=== PATIENT | female | born 1945 | race Caucasian/White ===

== ENCOUNTER → 2016-06-21 | Outpatient (CLI) | payer OTHER ==
[~2016-06-21] VITALS: Ht 157.5 cm; Wt 53.3 kg
[~2016-06-21] MED LIST: ADVIL200 M3 PO; APAP500 PO; ASPIR 8181 MG PO; ASPIRIN81 M2 PO; CALCIUM PO; CEFTIN 250 MG250 MG PO; LIPITOR80 MG PO; METOPROLOL SUCC25 M1 PO; NORVASC 5 MG TAB5 MG PO; TRAMADOL 50 MG50 MG PO; TRIAMTERENE/HCT1 CA1 PO; VOLTAREN 50MG T50 MG PO; VOLTAREN GEL 1100 G1 TOP; ZETIA10 MG PO
--- NOTE | ~2016-06-21 | HPC ---
[facility] [place] [address] PAIN MANAGEMENT CONSULTATION Name: SHEASHARON S Room #: REG [facility] Tracy#: [id number] Admission: 06/21/16 Attend Phys: Sathish Barros DO Discharge: Date of : 43 Report #: [id number] THIS REPORT FOR: //name// CC: Johanna Barros The patient is a 71-year-old female well known to the pain clinic, typically treated for lumbar radiculopathy secondary to spinal stenosis. She has done well with occasional epidural injections, last injection was back in January. Prior, she had had an injection in December and injections in June and July. Typically two injections have been afforded significant relief over a great deal of time. She notes that last injection afforded some 95% relief for 4 months pain. She is able to stand and walk with less pain. Now, the pain has gradually recurred without antecedent trauma and overuse. Pain is in the low back, right hip, leg with some weakness in the right side, rates the pain is 7 on a 0-10 visual analog scale. Physical exam shows 71-year-old female, BMI is 21.5 kilograms per meter squared. Vital signs are stable. Rises from chair using armrest, modestly antalgic gait favoring the right leg. Positive straight leg raise on the right. DIAGNOSTIC STUDIES: Moderately dated from 2011; however, it shows multilevel spondylosis, canal narrowed 9 mm at L4-L5, 7 mm at L5-S1. ASSESSMENT: Symptomatic lumbar radiculopathy secondary to spinal stenosis. RECOMMENDATION: Epidural injection under fluoroscopy today at L5-S1. Continue current range of motion activity. Follow up simply as needed. PROCEDURE: Lumbar epidural injection under fluoroscopy. PROCEDURE NOTE: After both written and informed consent to include risk of spinal cord damage, increased pain, weakness and dural puncture, the patient was taken to the fluoroscopy suite, placed in the prone position. After sterile prep and drape, a skin wheal with lidocaine was raised. A 22-gauge epidural Tuohy needle was inserted in the midline at L5-S1 with good loss to resistance. Negative aspiration for cerebrospinal fluid or blood was noted. Then 1 mL of Omnipaque under biplanar fluoroscopy showed good spread within the epidural space. This was followed with 80 mg of triamcinolone plus 1 mL of 1.5% preservative-free Xylocaine, 0.5 mL Xylocaine was then injected to flush the needle; it was removed. The patient was monitored for an appropriate period of time and discharged in good and stable condition. <ELECTRONICALLY SIGNED> By: Sathish Barros DO 06/25/16 0917 1710 [id number] Sathish Barros DO /nt
[2016-06-21 14:54] VITALS: BP 156/73
== END | disposition home or self-care (01) ==
LOC: PAIN 07:23
DX: M48.06 Spinal stenosis, lumbar region (principal)

== ENCOUNTER → 2016-12-21 | Outpatient (CLI) | payer OTHER ==
[~2016-12-21] VITALS: Ht 160 cm; Wt 51.3 kg
[~2016-12-21] MED LIST changes: +CRESTOR10 MG PO; +VITAMIN D3400 UNIT PO
[2016-12-21 14:22] VITALS: BP 121/83
== END | disposition home or self-care (01) ==
LOC: PAIN 06:58
DX: M48.06 Spinal stenosis, lumbar region (principal); M54.16 Radiculopathy, lumbar region; I25.10 Atherosclerotic heart disease of native coronary artery without angina pectoris; I73.89 Other specified peripheral vascular diseases; M81.0 Age-related osteoporosis without current pathological fracture; Z95.1 Presence of aortocoronary bypass graft; Z98.890 Other specified postprocedural states; Z88.8 Allergy status to other drugs, medicaments and biological substances; Z79.82 Long term (current) use of aspirin; Z79.899 Other long term (current) drug therapy

== ENCOUNTER → 2017-03-15 | Outpatient (CLI) | payer OTHER ==
[~2017-03-15] VITALS: Ht 160 cm; Wt 54.3 kg
--- NOTE | ~2017-03-15 | HPC ---
[facility] [place] [address] PAIN MANAGEMENT CONSULTATION Name: SHARON VALDIVIA Room #: REG [facility] Rosalio.#: [id number] Admission: 03/15/17 Attend Phys: Sathish Barors DO Discharge: Date of : 43 Report #: [id number] THIS REPORT FOR: //name// CC: Johanna Barros HISTORY OF PRESENT ILLNESS: The patient is a 72-year-old female typically treated for symptomatic lumbar radiculopathy, last seen in pain clinic on 12/21/2016. We did an epidural injection at that time with good incremental improvement of baseline pain, the patient notes 100% relief for 2-1/2 months. Pain is beginning to recur without antecedent trauma and overuse. Pain is in the low back, right hip and thigh and leg. Rates it a 5 on a VAS, exacerbated with sitting, standing and walking. PHYSICAL EXAMINATION: VITAL SIGNS: Shows a 72-year-old female, BMI is .2 kilograms per meter squared. Vital signs stable as noted in the EMR. MUSCULOSKELETAL: Rises from chair using armrest, moderately antalgic gait, positive straight leg raise on the right with slight decreased right hip flexion strength. The patient is planning on going to [place] to see her great granddaughter's baby shower. She is planning on doing some walking and we talked about riding the [employer]. She is a very active 72-year-old female. ASSESSMENT: Symptomatic lumbar radiculopathy secondary to spinal stenosis. RECOMMENDATIONS: 1. Epidural injection under fluoroscopy today at L3-L4. 2. Follow up simply as needed. I did take the liberty of renewing some tramadol 50 mg, dispensed 60 tablets, with 2 refills. PROCEDURE: Lumbar epidural injection under fluoroscopy. PROCEDURE NOTE: After both written and informed consent to include risk of spinal cord damage, increased pain, weakness and dural puncture, the patient was taken to the fluoroscopy suite, placed in the prone position. After sterile prep and drape, a skin wheal with lidocaine was raised. A 22-gauge epidural Tuohy needle was inserted in the midline at L3-L4 with good loss to resistance. Negative aspiration for cerebrospinal fluid or blood was noted. Then 1 mL of Omnipaque under biplanar fluoroscopy showed good spread within the epidural space. This was followed with 80 mg of triamcinolone plus 1 mL of 1.5% preservative-free Xylocaine, 0.5 mL Xylocaine was then injected to flush the [address] [address] PAIN MANAGEMENT CONSULTATION Name: SHARON VALDIVIA Room #: REG CL JazmineLarry#: [id number] Admission: 03/15/17 Attend Phys: Sathish Barros DO Discharge: Date of : 43 Report #: [id number] needle; it was removed. The patient was monitored for an appropriate period of time and discharged in good and stable condition. By: [id number] Sathish Barros DO /nt
[2017-03-15 14:58] VITALS: BP 136/60
== END | disposition home or self-care (01) ==
LOC: PAIN 07:37
DX: M54.16 Radiculopathy, lumbar region (principal); Z79.899 Other long term (current) drug therapy

== ENCOUNTER → 2017-06-17 | Outpatient (CLI) | payer OTHER ==
[~2017-06-17] VITALS: Ht 157.5 cm; Wt 54.9 kg
[~2017-06-17] MED LIST changes: +CALCIUM CARBO1250 MG PO; +CRESTOR40 MG PO; +VITAMIN D10000 UNIT PO
--- NOTE | ~2017-06-17 | HPC ---
[facility] [place] [address] [place] [address] PAIN MANAGEMENT CONSULTATION Name: SHARON VALDIVIA GARY Room #: REG AGUILA Molina#: [id number] Admission: 06/17/17 Attend Phys: Sathish Barros DO Discharge: Date of : 43 Report #: [id number] THIS REPORT FOR: //name// CC: Johanna Barros HISTORY OF PRESENT ILLNESS: The patient is a 72-year-old female typically treated for symptomatic lumbar radiculopathy. He does well with occasional epidural injections, last injection was on 03/15/2017 at L3-L4. The patient notes she had significant relief, near 100% for 2 months, pain has gradually begun to recur. She rates the pain currently at 7 on a VAS, pain is exacerbated at low back, right hip and leg; exacerbated with sitting, standing and walking. Prior the patient had had injections in June, December and the aforementioned 03/15/2017 injection in 2016. She had prior had 4 injections in 2015, one in 2014 and two in 2013. He returns to pain clinic noting pain has recurred, it is in the low back, right buttock, and legs. The patient does have osteoporosis, she is being treated with calcium, vitamin D and Reclast. We talked at length about concern for steroids promoting osteoporosis. The patient notes that with the significant improvement of function following epidural injections, which we have used with great discretion, her quality of life has significantly improved in her functional status has significantly improved. PHYSICAL EXAMINATION: Today shows a 72-year-old female, BMI is 22.1 kilograms per meter squared. Vital signs stable as noted in the EMR. Rises chair using armrest, modestly antalgic gait, slight decreased right hip flexion strength, lower extremity extension strength. Modestly positive straight leg raise on the right, classic neurogenic symptoms. ASSESSMENT: Symptomatic lumbar radiculopathy by clinical exam and history. RECOMMENDATIONS: Repeat epidural injection under fluoroscopy today. Follow up as needed. The patient is planning to travel to [place] to visit with her grandchildren. We will see her simply as needed. PROCEDURE: Lumbar epidural injection under fluoroscopy. PROCEDURE NOTE: After both written and informed consent to include risk of spinal cord damage, increased pain, weakness and dural puncture, the patient was taken to the fluoroscopy suite, placed in the prone position. After sterile prep and drape, a skin wheal with lidocaine was raised. A 22-gauge epidural [address] [address] PAIN MANAGEMENT CONSULTATION Name: SHARON VALDIVIA Room #: REG CL Tracy#: [id number] Admission: 06/17/17 Attend Phys: Sathish Barros DO Discharge: Date of : 43 Report #: [id number] Tuohy needle was inserted in the midline at L3-L4 with good loss to resistance. Negative aspiration for cerebrospinal fluid or blood was noted. Then 1 mL of Omnipaque under biplanar fluoroscopy showed good spread within the epidural space. This was followed with 80 mg of triamcinolone plus 1 mL of 1.5% preservative-free Xylocaine, 0.5 mL Xylocaine was then injected to flush the needle; it was removed. The patient was monitored for an appropriate period of time and discharged in good and stable condition. <ELECTRONICALLY SIGNED> By: Sathish Barros DO 06/19/17 0721 [id number] [id number] Sathish Barros DO /nt
[2017-06-17 12:34] VITALS: BP 124/59
== END | disposition home or self-care (01) ==
LOC: PAIN 06:54
DX: M54.16 Radiculopathy, lumbar region (principal); G89.29 Other chronic pain; Z98.890 Other specified postprocedural states; Z88.8 Allergy status to other drugs, medicaments and biological substances; Z79.82 Long term (current) use of aspirin; Z79.899 Other long term (current) drug therapy

== ENCOUNTER → 2017-09-23 | Outpatient (CLI) | payer OTHER ==
[~2017-09-23] VITALS: Ht 157.5 cm; Wt 54.6 kg
--- NOTE | ~2017-09-23 | HPC ---
[facility] [place] [address] [address] PAIN MANAGEMENT CONSULTATION Name: SHARON VALDIVIA Room #: REG [facility] Rosalio.#: [id number] Admission: 09/23/17 Attend Phys: Sathish Barros DO Discharge: Date of : 43 Report #: [id number] THIS REPORT FOR: //name// CC: Johanna Barros DATE OF SERVICE: 09/23/2017 The patient is a 72-year-old female, prior seen in the pain clinic on 06/17/2017. We did an epidural injection at that time with excellent improvement of baseline pain. In fact, the patient had nearly 100% relief for 2-3 months, pain gradually began to recur. She was able to walk in [place] with visiting family. Notes, her return pain score is a 7 on a VAS. PHYSICAL EXAMINATION: GENERAL: Shows a pleasant 72-year-old female, BMI is 22 kilograms per meter squared. VITAL SIGNS: Blood pressure 165/71, pulse 72, respirations 14. Her subjective pain score is a 7 on a VAS. She fell over a dog a couple days ago, but generally her gait is steady. She has no ataxia. Medication list was reconciled. She rises from chair using armrest, modestly antalgic gait, diffuse tenderness across the low back, positive straight leg raise on right side. Right hip flexion strength is modestly diminished, greater than left. ASSESSMENT: Symptomatic lumbar radiculopathy secondary to spinal stenosis with excellent relief following prior epidural injections for several months. RECOMMENDATION: Repeat epidural injection under fluoroscopy today. Follow up simply as needed. PROCEDURE: Midline epidural injection under fluoroscopy. PROCEDURE NOTE: After both written and informed consent to include risk of spinal cord damage, increased pain, weakness and dural puncture, the patient was taken to the fluoroscopy suite, placed in the prone position. After sterile prep and drape, a skin wheal with lidocaine was raised. A 22-gauge epidural Tuohy needle was inserted in the midline at L3-L4 with good loss to resistance. Negative aspiration for cerebrospinal fluid or blood was noted. Then 1 mL of Omnipaque under biplanar fluoroscopy showed good spread within the epidural space. This was followed with 80 mg of triamcinolone plus 1 mL of 1.5% preservative-free Xylocaine, 0.5 mL Xylocaine was then injected to flush the [address] [address] PAIN MANAGEMENT CONSULTATION Name: SHARON VALDIVIA Room #: REG CLKayla Molina#: [id number] Admission: 09/23/17 Attend Phys: Sathish Barros DO Discharge: Date of : 43 Report #: [id number] needle; it was removed. The patient was monitored for an appropriate period of time and discharged in good and stable condition. <ELECTRONICALLY SIGNED> By: Sathish Barros DO 09/25/17 0819 1643 1936 Sathish Barros DO /sonia
[2017-09-23 12:44] VITALS: BP 165/71
== END | disposition home or self-care (01) ==
LOC: PAIN 07:05
DX: M54.16 Radiculopathy, lumbar region (principal); M48.061 Spinal stenosis, lumbar region without neurogenic claudication

== ENCOUNTER → 2018-01-10 | Outpatient (CLI) | payer OTHER ==
[~2018-01-10] VITALS: Ht 157.5 cm; Wt 55.8 kg
--- NOTE | ~2018-01-10 | HPC ---
[facility] [place] [address] PAIN MANAGEMENT CONSULTATION Name: SHARON VALDIVIA Room #: REG AGUILA Molina#: [id number] Admission: 01/10/18 Attend Phys: Richard Gibbs MD Discharge: Date of : 43 Report #: [id number] THIS REPORT FOR: //name// CC: Johanna Espino DATE OF SERVICE: 01/10/2018 CHIEF COMPLAINT: Back pain. HISTORY OF PRESENT ILLNESS: The patient is a 72-year-old female who has been followed in the Pain Clinic for some time by Dr. Sathish Barros. This is my first visit with the patient. She has a history of lumbar radicular pain. She has undergone epidural steroid injections in the past and gleans about 100% relief for 2-3 months, then her pain usually recurs. She notes that her pain is 5 today. She is experiencing pain that radiates down into right buttocks area in the L5 distribution. She describes it as worse when she is sitting, standing, walking, lifting, and bending. She feels that her medications are somewhat helpful. She has undergone epidural steroid injections and gleaned benefits from these. She has returned today with the hopes of undergoing an epidural steroid injection to help quell her pain and discomfort. She has had no complications from the procedures in the past. ALLERGIES: MORPHINE, GLUTEN. MEDICATIONS: Ultram 50 mg q. 4 hours p.r.n., Voltaren gel 1% topical 4 times daily to the right knee, calcium carbonate 1250 mg, Crestor 40 mg, vitamin D3 10,000 units, aspirin 81 mg, hydrochlorothiazide/triamterene 37.5/25, metoprolol XL 25 mg. PAST MEDICAL HISTORY: Coronary artery bypass in 1999, heart stent placement in 2001, carotid left and right in 2002. PAST SURGICAL HISTORY: Hysterectomy in 1984, carotid right side in 2002, carotid left side in 2002, coronary artery bypass graft 1999, heart stents placement in 2001. SOCIAL HISTORY: She is retired. REVIEW OF SYSTEMS: Fatigue, weakness, wears glasses, numbness and tingling sensation. LABORATORY AND DIAGNOSTIC DATA: MRI of the lumbar spine without contrast dated 11/25/2016. 1. L3-L4: Circumferential disk bulge. No significant spinal canal narrowing. [address] [address] PAIN MANAGEMENT CONSULTATION Name: SHEASHARON GARY Room #: REG AGUILA Molina#: [id number] Admission: 01/10/18 Attend Phys: Richard Gibbs MD Discharge: Date of : 43 Report #: [id number] Mild bilateral spinal canal narrowing. Mild facet arthropathy. 2. L4-L5: Circumferential disk bulge. Ligamentum flavum thickening. Moderate spinal canal narrowing. Mild bilateral neural foraminal narrowing. Moderate facet arthropathy. Bilateral facet fluid. Small synovial cyst extending posterior to the left side articulating facet. 3. L5-S1: Circumferential bulging disks, asymmetric to the left. Annular fissure. Mild spinal canal narrowing including the left lateral recess. Moderate left and mild right neural foraminal narrowing. Moderate facet arthropathy. Lumbar spondylosis. Moderate spinal canal narrowing at L4-L5. PAIN CLINIC ASSESSMENT: 1. Some osteoarthritic changes in the lumbar spine. 2. The patient is not being treated for rheumatoid arthritis. 3. Height 5 feet 2 inches, weight 123 pounds, BMI 22.5. 4. Vital signs: Blood pressure 143/49, pulse 58, respiratory rate 14, room air saturation is 95%. 5. Pain intensity: 5/10. 6. Fall risk: The patient has not fallen in the last 3 months. 7. Blood thinner: The patient is not on a blood thinning medication. 8. History of hypertension: The patient is being treated for hypertension. 9. Opioid therapy greater than 6 weeks: The patient is not on opioid therapy. 10. Risk assessment tool: Low at 0/3-4 use of opioid. 11. Functional assessment tool. 12. Recreational drug use: The patient denies use of recreational drugs. 13. Tobacco: The patient has never smoked tobacco. 14. Alcohol: The patient denies use of alcoholic beverages PHYSICAL EXAMINATION: HEENT: Normocephalic, atraumatic. Extraocular eye muscles intact. Sclerae nonicteric. Mucous membranes are moist. NECK: Without JVD or adenopathy. HEART: Regular rate. LUNGS: Clear to auscultation without rhonchi or rales. MUSCULOSKELETAL: The patient is without significant scoliosis, kyphosis or lordosis. The patient has pain and discomfort in the lower portion of her back with pain that is radiating down into the low back, right hip, right buttocks area. She is complaining about pain at this juncture, which has improved with epidural steroid injections in the past. They were up in the area of the L3-L4 areas. IMPRESSION: 1. Lumbar radiculopathy in the L5-S1 area involving the right hip area and right buttocks with radiation down into the leg. 2. Coronary artery bypass in 1999. 3. Heart stent placement in 2001. 4. Carotid left and right in [address] [address] PAIN MANAGEMENT CONSULTATION Name: SHARON VALDIVIA Room #: REG [facility]#: [id number] Admission: 01/10/18 Attend Phys: Richard Gibbs MD Discharge: Date of : 43 Report #: [id number] RECOMMENDATIONS: We discussed treatment options with the patient. Risks and benefits of an epidural steroid injection were again reviewed. Possible complications of the procedure were discussed. They include but are not limited to infection, increased muscle soreness, headache, bleeding, worsening of pain, no improvement in pain, paresis. The patient elects to proceed. PROCEDURE NOTE: The patient was then taken to the Pain Clinic. She was assisted in getting on the examination table. Her back was sterilely prepped with Betadine solution. A pillow had been placed under her abdomen to bolster and improve positioning. Fluoroscopy using the anterior, posterior as well as lateral approach were instituted. A right paramedian approach was elected. 0.25% bupivacaine was infiltrated. A 17-gauge Tuohy with loss of resistance technique was used to gain access to the epidural space. There was no CSF, heme or paresthesia. Total of 80 mg Depo-Medrol, 40 mg triamcinolone, and 2 mL of 0.25% bupivacaine was injected. The patient's pain decreased from 5 to 0 at the time of discharge. Total of 6 seconds fluoroscopy time was used. The patient will follow up in the future as needed. We would like to thank you for letting us participate in her care. We hope she continues to improve. By: [id number] Richard Gibbs MD /sonia
[2018-01-10 12:57] VITALS: BP 143/49
== END | disposition home or self-care (01) ==
LOC: PAIN 07:05
DX: M54.16 Radiculopathy, lumbar region (principal); I10 Essential (primary) hypertension; I25.10 Atherosclerotic heart disease of native coronary artery without angina pectoris; Z95.1 Presence of aortocoronary bypass graft; Z95.5 Presence of coronary angioplasty implant and graft; Z90.710 Acquired absence of both cervix and uterus; Z79.01 Long term (current) use of anticoagulants; Z98.890 Other specified postprocedural states; Z88.8 Allergy status to other drugs, medicaments and biological substances; Z79.82 Long term (current) use of aspirin; Z79.899 Other long term (current) drug therapy; G89.29 Other chronic pain

== ENCOUNTER → 2018-04-25 | Outpatient (CLI) | payer OTHER ==
[~2018-04-25] VITALS: Ht 157.5 cm; Wt 55.0 kg
[2018-04-25 13:10] VITALS: BP 156/68
== END | disposition home or self-care (01) ==
LOC: PAIN 07:27
DX: M54.16 Radiculopathy, lumbar region (principal); Z79.899 Other long term (current) drug therapy; Z79.82 Long term (current) use of aspirin; Z88.6 Allergy status to analgesic agent; Z88.8 Allergy status to other drugs, medicaments and biological substances

== ENCOUNTER → 2018-07-25 | Outpatient (CLI) | payer OTHER ==
[~2018-07-25] VITALS: Ht 160 cm; Wt 55.0 kg
--- NOTE | ~2018-07-25 | HPC ---
[facility] [place] [address] PAIN MANAGEMENT CONSULTATION Name: SHARON VALDIVIA Room #: REG AGUILA Santamaria.#: [id number] Admission: 07/25/18 Attend Phys: Richard Gibbs MD Discharge: Date of : 43 Report #: [id number] THIS REPORT FOR: //name// CC: Johanna Gibbs DATE OF SERVICE: 07/25/2018 FOLLOWUP HISTORY: This might be my last injection. I am going to move to [place] and vacation in the summertime in [place] with my other son. HISTORY: The patient is a 73-year-old female who has been seen in the pain clinic because of lumbar radiculopathy. She has undergone epidural steroid injections. She states that she has gleaned considerable benefit from these. She has pain, which is radiating down into her right leg. She is anticipating moving to [place] in the near future. She would like to proceed with another epidural steroid injection to help calm down her pain and discomfort which she has been experiencing, which radiates down into her right leg. She rates the pain today as a 5/10. It is snowing 2-4 inches today. The weather is cold. ALLERGIES: MORPHINE, GLUTEN. CURRENT MEDICATIONS: Ultram 50 mg q.4 hours, Voltaren gel topical 1% 4 times daily to the right knee. Calcium carbonate 1250 mg, Crestor 40 mg, vitamin D3 10,000 units, aspirin 81 mg, hydrochlorothiazide/triamterene 37.5/25, metoprolol XL 25 mg. PAIN CLINIC ASSESSMENT/PQRS: 1. The patient has a history of osteoarthritis. She has been experiencing pain and discomfort in the lumbar spine. Has pain which is radiating down into her right leg. The patient is not being treated for rheumatoid arthritis. 2. Height 5 feet 2 inches, weight 121 pounds, BMI is 21.5. 3. Vital signs: Blood pressure 151/53, pulse 76, respiratory rate 18, room air saturation 91%. 4. Pain intensity 10. 5. Fall risk. The patient has not fallen in the last 3 months. 6. Blood thinner. The patient is not on a blood thinning medication. 7. Hypertension. The patient is being treated for hypertension. 8. Opioid greater than 6 weeks. The patient is not on any opioid medication on a long-term basis. 9. Risk assessment tool is low for opioid 0/3. 10. Functional assessment tool. 11. Recreational drug use. The patient denies use of recreational drugs. 12. Tobacco: The patient has never smoked. 13. Alcohol: The [place] [address] PAIN MANAGEMENT CONSULTATION Name: SHEASHARON SUE Room #: REG CLKayla Molina#: [id number] Admission: 07/25/18 Attend Phys: Richard Gibbs MD Discharge: Date of : 43 Report #: [id number] PHYSICAL EXAMINATION: GENERAL: The patient is a well-developed, well-nourished, very pleasant white female. Appears her stated age. She is alert and oriented x 3. Her affect is appropriate. Speech is fluent. HEENT: Normocephalic, atraumatic. Extraocular eye muscles are intact. Sclerae nonicteric. Mucous membranes moist. NECK: Without adenopathy or JVD. HEART: Regular rate. S1, S2. LUNGS: Clear to auscultation without rhonchi or rales. MUSCULOSKELETAL: Without significant scoliosis, kyphosis or lordosis. The patient has pain and discomfort that is radiating down into the lower portion of her back in the L4-L5 dermatomal distribution. IMPRESSION: 1. Lumbar radiculopathy, which has improved in the past with epidural steroid injections today in the L4-L5 dermatomal distribution. 2. Coronary artery disease, status post coronary artery bypass graft in 1999. 3. Heart stent placement in 2001. 4. Carotid left and right 2002. RECOMMENDATIONS: We discussed treatment options with the patient. Risks and benefits of an epidural steroid injection were again reviewed. They include but are not limited to infection, worsening of pain, no improvement in pain, nerve damage, paralysis and the patient elects to proceed. PROCEDURE NOTE: The patient was taken to the procedure area. She was assisted in getting on the examination table. Fluoroscopy using anterior, posterior as well as lateral viewing were implemented. Her back was sterilely prepped at the L4-L5 interspace. This area had been cleaned with Betadine solution. A 25-gauge needle was then advanced into the L4-L5 area to numb it. A 17-gauge Tuohy with loss of resistance technique was used to gain access to the epidural space. There was no CSF, heme or paresthesia. Total of 80 mg Depo-Medrol, 40 mg triamcinolone and 2 mL of 0.25% bupivacaine was injected. Total of 12 seconds fluoroscopy time was used. The patient remained in the pain clinic for an appropriate amount of time. She will follow up in the future as needed. We would like to thank you for letting us participate in her care. We hope she continues to improve. By: [id number] Richard Gibbs MD /nt
[2018-07-25 10:27] VITALS: BP 151/53
--- NOTE | 2018-07-25 10:32 | NUR ---
Pain Clinic Assessment: 1. History of Osteoarthritis: NO History of Rheumatoid Arthritis: NO 2. Height: 5 ft. 3 in. 160.0 cm. Weight: 121.3 lb. oz. 55.021 kg. Patient's BMI: 21.5 3. Vital Signs: BP: 151/53 Pulse: 78 Resp: 18 Temp: 02 Sat: 91 ECG Mon: 4. Pain Intensity: 5 5. Fall Risk: Dizziness: N Needs help standing or walking: N Fallen in the last 3 months: N Fall risk comments: 6. Patient on Blood Thinner: None 7. History of Hypertension: Y 8. Opioid Therapy greater than 6 weeks: N Opiate Contract Signed: 9. Risk Assessment Tool Provided: LOW RISK 0/3 10. Functional Assessment Tool: 11. Recreational Drug Use: Never Drug Type: Tobacco Use: Never Smoker Tobacco Type: Amount or Packs/day: How Many Years: Alcohol Use: No Frequency: Quant:
== END | disposition home or self-care (01) ==
LOC: PAIN 10:11
DX: M54.16 Radiculopathy, lumbar region (principal); M19.90 Unspecified osteoarthritis, unspecified site; I25.10 Atherosclerotic heart disease of native coronary artery without angina pectoris; I10 Essential (primary) hypertension; Z95.5 Presence of coronary angioplasty implant and graft; Z88.8 Allergy status to other drugs, medicaments and biological substances; Z79.899 Other long term (current) drug therapy

== ENCOUNTER → 2019-02-20 | Outpatient (CLI) | payer OTHER ==
[~2019-02-20] VITALS: Ht 160 cm; Wt 52.2 kg
[~2019-02-20] MED LIST changes: +ALENDRONATE SOD70 MG PO
[2019-02-20 08:11] VITALS: BP 139/73
--- NOTE | 2019-02-20 08:22 | NUR ---
Pain Clinic Assessment: 1. History of Osteoarthritis: Left Lower Extremity Left Upper Extremity Right Lower Extremity Right Upper Extremity History of Rheumatoid Arthritis: NO 2. Height: 5 ft. 3 in. 160.0 cm. Weight: 115.0 lb. oz. 52.164 kg. Patient's BMI: 20.4 3. Vital Signs: BP: 139/73 Pulse: 67 Resp: 16 Temp: 02 Sat: 100 ECG Mon: 4. Pain Intensity: 5 5. Fall Risk: Dizziness: N Needs help standing or walking: N Fallen in the last 3 months: N Fall risk comments: 6. Patient on Blood Thinner: None 7. History of Hypertension: Y 8. Opioid Therapy greater than 6 weeks: N Opiate Contract Signed: 9. Risk Assessment Tool Provided: LOW RISK 0 10. Functional Assessment Tool: /70 11. Recreational Drug Use: Never Drug Type: Tobacco Use: Never Smoker Tobacco Type: Amount or Packs/day: How Many Years: Alcohol Use: No Frequency: Quant:
--- NOTE | 2019-03-02 08:54 | HPC ---
[facility] [place] [address] PAIN MANAGEMENT CONSULTATION Name: SHARON VALDIVIA Room #: REG LINOKayla Molina#: [id number] Admission: 02/20/19 ������������������ Attend Phys: Richard Gibbs MD Discharge: ������������������ Date of : 41 Report #: [id number] THIS REPORT FOR: //name// CC: Johanna Colón DATE OF SERVICE: 02/20/2019 CHIEF COMPLAINT: 'We are going to go on vacation and I would like to get another injection to help with my back pain." HISTORY: The patient is a very pleasant 74-year-old female, who has been seen in the Pain Clinic because of a history of lumbar radiculopathy. She has undergone epidural steroid injections in the past. These have been beneficial and decreased her pain and discomfort. She is considering going on vacation at this point and would like to undergo another epidural injection. She rates her pain as a 5/10. She is experiencing some pain and discomfort, which she is experiencing in her lower back and buttocks bilaterally. Also, she has some discomfort in the right leg. Notes some discomfort in the right hip. Sitting, walking and lifting can be problematic. Pain improves after the injection as well as with medications. She does use Tylenol Arthritis to help calm down the pain. She has had no complications in the past and elects to proceed. ALLERGIES: MORPHINE, GLUTEN. CURRENT MEDICATIONS: Ultram 50 mg q. 4 hours p.r.n., Voltaren gel topical 1% 4 times daily to the right knee, calcium carbonate 1250 mg, Crestor 40 mg, vitamin D3 3000 units, aspirin 81 mg, hydrochlorothiazide/triamterene 37.5/25, metoprolol XL 25 mg. PAIN CLINIC ASSESSMENT AND PQRS: 1. The patient has a history of lower and upper extremity osteoarthritis as well as some right upper and lower extremity osteoarthritic changes. The patient is not being treated for rheumatoid arthritis. 2. Height 5 feet 3 inches, weight 115 pounds, BMI is 20. 3. Vital signs: Blood pressure 139/73, pulse 67, respiratory rate 16, room air saturation 100%. 4. Pain intensity: 5/10. 5. Fall history: The patient has not fallen in the last 3 months. 6. Blood thinner: The patient is not on a blood thinning medication. 7. Hypertension: The patient is being treated for hypertension. 8. Opioids greater than 6 weeks: The patient receives medication from one [facility] from [facility] Clinic. 9. Risk assessment tool: Low for opioid use. 10. [place] [address] PAIN MANAGEMENT CONSULTATION Name: SHEASHARONADOLFO VEGA Room #: REG AGUILA Molina#: [id number] Admission: 02/20/19 ������������������ Attend Phys: Richard Gibbs MD Discharge: ������������������ Date of : 41 Report #: [id number] 11. Recreational drug use: The patient denies. 12. Tobacco: The patient has never smoked. 13. Alcohol. The patient denies frequent use of alcoholic beverages. PHYSICAL EXAMINATION: GENERAL: The patient is a well-developed, well-nourished, white female. Appears her stated age. She is alert and oriented x 3. Her affect is appropriate. Speech is fluent. HEENT: Normocephalic, atraumatic. Extraocular eye muscles intact. Sclerae nonicteric. Mucous membranes are moist. NECK: Without adenopathy or JVD. HEART: Regular rate. S1 and S2. LUNGS: Clear to auscultation without rhonchi or rales. MUSCULOSKELETAL: Without significant scoliosis, kyphosis or lordosis. The patient has pain and discomfort in the lower portion of her back with pain radiating down to the lower portion of her legs in the L4-L5 dermatomal distribution. IMPRESSION: 1. Lumbar radiculopathy, which is improved in the past with epidural steroid injections. 2. Coronary artery disease, status post coronary artery bypass graft in 1999. 3. Heart stent placement in 2001. 4. Carotid, left and right in 2002. RECOMMENDATIONS: We discussed treatment options with the patient. Risks and benefits of an epidural steroid injection were again discussed. Possible complications of the procedure, which could include but are not limited to infection, worsening of pain, no improvement in pain were explained and the patient elects to proceed. PROCEDURE NOTE: The patient was taken to the procedure area. She was then assisted in getting on the examination table. Her back was sterilely prepped with betadine solution. A pillow was placed under the abdomen to bolster and improve positioning. A 25-gauge needle using a midline approach was undertaken to anesthetize this area. A 17-gauge Tuohy with loss of resistance technique was used to gain access to the epidural space. There was no CSF, heme or paresthesia. A total of 80 mg Depo-Medrol, 40 mg triamcinolone, and 2 mL of 0.25% bupivacaine was injected at the L5-S1 area. The patient tolerated the procedure well. There were no complications. She remained in the Pain Clinic for an appropriate amount of time. She will follow up in the future as needed. [address] [address] PAIN MANAGEMENT CONSULTATION Name: SHARON VALDIVIA Room #: REG [facility].#: [id number] Admission: 02/20/19 ������������������ Attend Phys: Richard Gibbs MD Discharge: ������������������ Date of : 41 Report #: [id number] We would like to thank you for letting us participate in her care. We hope she continues to improve. ��������������������������������������������� <ELECTRONICALLY SIGNED> ���������������������������������������� By: Richard Gibbs MD ��������������������������������������������� 03/02/19 0854 [id number] Richard Gibbs MD /nt
== END | disposition home or self-care (01) ==
LOC: PAIN 06:43
DX: M54.16 Radiculopathy, lumbar region (principal); G89.29 Other chronic pain; I10 Essential (primary) hypertension; I25.10 Atherosclerotic heart disease of native coronary artery without angina pectoris; Z88.8 Allergy status to other drugs, medicaments and biological substances; Z79.899 Other long term (current) drug therapy; Z98.890 Other specified postprocedural states; Z79.82 Long term (current) use of aspirin

== ENCOUNTER → 2019-05-22 | Outpatient (CLI) | payer OTHER ==
[~2019-05-22] VITALS: Ht 160 cm; Wt 53.6 kg
[~2019-05-22] MED LIST changes: +BENICAR20 MG PO
[2019-05-22 09:50] VITALS: BP 126/57
--- NOTE | 2019-05-22 10:12 | NUR ---
Pain Clinic Assessment: 1. History of Osteoarthritis: RIGHT HIP SPINE RIGHT KNEE History of Rheumatoid Arthritis: NO 2. Height: 5 ft. 3 in. 160.0 cm. Weight: 118.2 lb. oz. 53.615 kg. Patient's BMI: 20.9 3. Vital Signs: BP: 126/57 Pulse: 60 Resp: 14 Temp: 02 Sat: 100 ECG Mon: 4. Pain Intensity: 4-5 5. Fall Risk: Dizziness: Y Needs help standing or walking: N Fallen in the last 3 months: N Fall risk comments: 6. Patient on Blood Thinner: None 7. History of Hypertension: Y 8. Opioid Therapy greater than 6 weeks: N Opiate Contract Signed: 9. Risk Assessment Tool Provided: LOW RISK 0 10. Functional Assessment Tool: 11. Recreational Drug Use: Never Drug Type: Tobacco Use: Never Smoker Tobacco Type: Amount or Packs/day: How Many Years: Alcohol Use: No Frequency: Quant:
== END | disposition home or self-care (01) ==
LOC: PAIN 07:31
DX: M54.16 Radiculopathy, lumbar region (principal); Z88.8 Allergy status to other drugs, medicaments and biological substances; Z79.82 Long term (current) use of aspirin; Z79.899 Other long term (current) drug therapy

== ENCOUNTER → 2019-08-19 | Outpatient (CLI) | payer OTHER ==
[~2019-08-19] VITALS: Ht 160 cm; Wt 53.3 kg
[2019-08-19 09:33] VITALS: BP 129/84
--- NOTE | 2019-08-19 09:47 | NUR ---
Pain Clinic Assessment: 1. History of Osteoarthritis: RIGHT HIP SPINE RIGHT KNEE History of Rheumatoid Arthritis: NO 2. Height: 5 ft. 3 in. 160.0 cm. Weight: 117.6 lb. oz. 53.343 kg. Patient's BMI: 20.8 3. Vital Signs: BP: 129/84 Pulse: 66 Resp: 14 Temp: 02 Sat: 96 ECG Mon: 4. Pain Intensity: 4-GETS WORSE BY AFTERNOON 5. Fall Risk: Dizziness: N Needs help standing or walking: N Fallen in the last 3 months: Y Fall risk comments: 6. Patient on Blood Thinner: None 7. History of Hypertension: Y 8. Opioid Therapy greater than 6 weeks: N Opiate Contract Signed: 9. Risk Assessment Tool Provided: LOW RISK 0 10. Functional Assessment Tool: 11. Recreational Drug Use: Never Drug Type: Tobacco Use: Never Smoker Tobacco Type: Amount or Packs/day: How Many Years: Alcohol Use: No Frequency: Quant:
--- NOTE | 2019-08-25 10:01 | HPC ---
[facility] [place] [address] PAIN MANAGEMENT CONSULTATION Name: SHARON VALDIVIA Room #: REG AGUILA Tracy#: [id number] Admission: 08/19/19 Attend Phys: Richard Gibbs MD Discharge: Date of : 41 Report #: [id number] THIS REPORT FOR: cc: Johanna Feng Kathleen M. DO Brown, N. Wayne MD ~ CC: Johanna Gibbs DATE OF SERVICE: 08/19/2019 CHIEF COMPLAINT: The patient has pain and discomfort in the lower portion of her back. It is radiating down into her legs. HISTORY: The patient is a 74-year-old female who has been followed in the pain clinic. As you may recall, she suffers from lumbar radiculopathy. She has undergone epidural steroid injections. She has noticed benefits from this. She travels. Since she has returned home she has noted some increased pain and discomfort that is radiating down into her legs. Right leg is most problematic. She does recount having a dog jumped up on her about Jax time. She did fall. For the last 6 weeks, she has noted that her pain has continued to be more problematic. She has difficulty relaxing. She rates her pain as a 4 in the morning and can rise to a level of 5 by afternoon. She would like to proceed with another epidural steroid injection, which has been beneficial in the past. She is anticipating going to [place] to be with family members. ALLERGIES: MORPHINE AND GLUE. CURRENT MEDICATIONS: Ultram 50 mg q. 4 hours p.r.n., Voltaren gel topical 1% 4 times daily, calcium carbonate 1250 mg, Crestor 40 mg, vitamin D3 1000 units, aspirin 81 mg, hydrochlorothiazide, triamterene 37.5/25, and metoprolol XL 25 mg. PAIN CLINIC ASSESSMENT AND PQRS: 1. The patient has history of pain and discomfort in the lower extremities. She has osteoarthritic changes in her right hip, spine and in the right knee. She is not being treated for rheumatoid arthritis. 2. Height 5 feet 3 inches, weight 117 pounds, BMI is 20.8. 3. Vital signs: Blood pressure 129/84, pulse 66, respiratory rate 14, room air saturation 96%. 4. Pain intensity 4/5. 5. Fall history: The patient did fall in 05/2019 after a dog jumped upon her. She does note some increased pain in her right leg. 6. Blood thinner. The patient is not on a blood thinning medication. 7. Hypertension. The patient is being treated for hypertension. 8. Opioids greater than 6 weeks. The [place] [address] PAIN MANAGEMENT CONSULTATION Name: SHARON VALDIVIA Room #: REG AGUILA Molina#: [id number] Admission: 08/19/19 Attend Phys: Richard Gibbs MD Discharge: Date of : 41 Report #: [id number] source. 9. Risk assessment tool, low for opioid use. 10. Functional assessment tool . 11. Recreational drugs: The patient denies. 12. Tobacco: The patient has never smoked. 13. Alcohol. The patient denies frequent use of alcoholic beverages. PHYSICAL EXAMINATION: GENERAL: The patient is a well-developed, well-nourished white female. Appears her stated age. She is alert and oriented x 3. Her affect is appropriate. Speech is fluent. HEENT: Normocephalic, atraumatic. Extraocular eye muscles intact. Sclerae nonicteric. Mucous membranes are moist. NECK: Without adenopathy or JVD. HEART: Regular rate. LUNGS: Generally clear to auscultation. ABDOMEN: Nontender. EXTREMITIES: Upper extremity muscle strength judged to be 5-/5 for the major muscle groups in the upper extremity. The patient has pain and discomfort with pain in the lower extremity radiating down in the L5-S1 dermatomal distribution. The patient is more problematic on the right. IMPRESSION: 1. Lumbar radiculopathy with L5-S1 distribution on the right. 2. Coronary artery disease, status post coronary artery bypass graft in 1999. 3. Heart stent placement in 2001. 4. Carotid, left and right carotid endarterectomy in 2002. RECOMMENDATIONS: We discussed treatment options with the patient. Risks and benefits of an epidural steroid injection were again discussed. Possible complications of the procedure were reviewed. They include but are not limited to infection, worsening pain, no improvement in pain, nerve damage, spinal headache and the patient elects to proceed. PROCEDURE NOTE: The patient was taken to the procedure area. She was then assisted in getting on examination table. Her back was sterilely prepped with a Betadine solution. At the L5-S1 area, 0.25% bupivacaine was infiltrated. A 17-gauge Tuohy with loss of resistance technique was used to gain access to the epidural space. There was no CSF, heme or paresthesia. A total of 80 mg Depo-Medrol, 40 mg triamcinolone and 2 mL of 0.25% bupivacaine was injected. The patient tolerated the procedure well. There were no complications. She [address] [address] PAIN MANAGEMENT CONSULTATION Name: SHARON VALDIVIA [facility] [id number] Admission: 08/19/19 Attend Phys: Richard Gibbs MD Discharge: Date of : 41 Report #: [id number] remained in the Pain Clinic for probably an appropriate amount of time. She will call us if she has any concerns. <ELECTRONICALLY SIGNED> By: Richard Gibbs MD 08/25/19 1001 1009 1432 Richard Gibbs MD /nt
== END | disposition home or self-care (01) ==
LOC: PAIN 06:38
DX: M54.16 Radiculopathy, lumbar region (principal); G89.29 Other chronic pain; I10 Essential (primary) hypertension; I25.10 Atherosclerotic heart disease of native coronary artery without angina pectoris; Z95.1 Presence of aortocoronary bypass graft; Z98.890 Other specified postprocedural states; Z79.899 Other long term (current) drug therapy; Z88.8 Allergy status to other drugs, medicaments and biological substances

== ENCOUNTER → 2019-11-18 | Outpatient (CLI) | payer OTHER ==
[~2019-11-18] VITALS: Ht 160 cm; Wt 56.7 kg
[2019-11-18 10:10] VITALS: BP 136/75
--- NOTE | 2019-11-18 10:16 | NUR ---
Pain Clinic Assessment: 1. History of Osteoarthritis: RIGHT HIP SPINE RIGHT KNEE History of Rheumatoid Arthritis: Not Applicable 2. Height: 5 ft. 3 in. 160.0 cm. Weight: 125.0 lb. oz. 56.700 kg. Patient's BMI: 22.1 3. Vital Signs: BP: 136/75 Pulse: 70 Resp: 16 Temp: 02 Sat: 99 ECG Mon: 4. Pain Intensity: 5 5. Fall Risk: Dizziness: N Needs help standing or walking: N Fallen in the last 3 months: N Fall risk comments: 6. Patient on Blood Thinner: None 7. History of Hypertension: Y 8. Opioid Therapy greater than 6 weeks: N Opiate Contract Signed: 9. Risk Assessment Tool Provided: LOW RISK 0 10. Functional Assessment Tool: 11. Recreational Drug Use: Never Drug Type: Tobacco Use: Never Smoker Tobacco Type: Amount or Packs/day: How Many Years: Alcohol Use: No Frequency: Quant:
--- NOTE | 2019-12-01 15:16 | HPC ---
[facility] [place] [address] PAIN MANAGEMENT CONSULTATION Name: SHARON VALDIVIA Room #: REG AGUILA JazmineVicenta.#: [id number] Admission: 11/18/19 Attend Phys: Richard Gibbs MD Discharge: Date of : 41 Report #: [id number] THIS REPORT FOR: cc: Johanna Feng,Richard Owens MD ~ CC: Johanna Gibbs DATE OF SERVICE: 11/18/2019 CHIEF COMPLAINT: Back pain down in the legs on both sides. HISTORY: The patient is a 74-year-old female who has been followed in the pain clinic. She does suffer from lumbar radiculopathy. Her pain has increased at this juncture. Epidural steroid injections have been helpful. She has noticed that the pain now has increased to 5/10. Sitting, walking, lifting and standing exacerbate her discomfort. She is having pain that radiates down into her right hip, right leg and to the level of the knee. She has returned today with the hopes of undergoing another epidural steroid injection. These have proven beneficial. She would like to have her pain improved. ALLERGIES: MORPHINE AND GLUE. CURRENT MEDICATIONS: Ultram 50 mg q.4 hours, Voltaren gel topical 1% 4 times daily, calcium carbonate 1250 mg, Crestor 40 mg, vitamin D3 1000 units, aspirin 81 mg, hydrochlorothiazide and triamterene 37.5/25, metoprolol XL 25 mg. PAIN CLINIC ASSESSMENT AND PQRS: 1. The patient has a history of pain and discomfort in the lower extremities. She has osteoarthritic changes in her right hip, spine and in her right knee. She is not being treated for rheumatoid arthritis. 2. Height 5 feet 3 inches, weight 117 pounds, BMI is 22. 3. Vital Signs: Blood pressure 136/75, pulse 70, respiratory rate 16, room air saturation is 99%. 4. Pain intensity 10. 5. Fall history: The patient has not fallen in the last 3 months. 6. Blood thinner. The patient is not on a blood thinning medication. 7. Hypertension. The patient is being treated for hypertension. 8. Opioids greater than 6 weeks. The patient received medication from one source. 9. Risk assessment tool, low for opioid use. 10. Functional assessment tool reviewed. 10. Recreational drug use. The patient denies. 11. Tobacco: The patient has never smoked. 12. Alcohol. The patient denies frequent use of alcoholic beverages. [address] [address] PAIN MANAGEMENT CONSULTATION Name: SHARON VALDIVIA Room #: REG [facility].#: [id number] Admission: 11/18/19 Attend Phys: Richard Gibbs MD Discharge: Date of : 41 Report #: [id number] PHYSICAL EXAMINATION: GENERAL: The patient is a well-developed, well-nourished white female. Appears her stated age. She is alert and oriented x 3. Her affect is appropriate. Speech is fluent. HEENT: Normocephalic, atraumatic. Extraocular eye muscles intact. Sclerae nonicteric. Mucous membranes are moist. NECK: Without adenopathy or JVD. LUNGS: Generally clear. ABDOMEN: Nontender. EXTREMITIES: Upper extremity muscle strength judged to be 5/5 for the major muscle groups in the upper extremity. The patient has pain and discomfort with pain in the lower extremity radiating down to the L5-S1 dermatomal distribution on the right. IMPRESSION: 1. Lumbar radiculopathy, L5-S1 distribution with pain radiating down into the leg and right hip. 2. Coronary artery disease, status post coronary artery bypass graft 1999. 3. Heart stent placement in 2001. 4. Left and right carotid endarterectomy 2002. RECOMMENDATIONS: We discussed treatment options with the patient. Risks and benefits of an epidural steroid injection were discussed. Possible complications of the procedure were reviewed. They include but are not limited to infection, worsening of pain, no improvement in pain, nerve damage. The patient is aware that COVID-19 is around. She has been staying at home in an effort to stay safe. We have explained that steroid use can decrease one's immunity. Should she get the COVID virus and have undergone steroid treatment, may find that her response might be somewhat diminished. She is aware and elects to proceed. PROCEDURE NOTE: The patient was taken to the procedure area. She was then assisted in getting on the examination table. Her back was sterilely prepped. A 0.25% bupivacaine was infiltrated. At the L5-S1 area, a 17-gauge Tuohy with loss of resistance technique was advanced at the L5-S1 area. There was no CSF, heme or paresthesia. This area had been anesthetized with 0.25% bupivacaine using a 25-gauge needle. The patient tolerated the procedure well. She has pain in the pain clinic for an appropriate amount of time. She will follow up in the future as needed. We would like to thank you for letting us participate in her care. We hope she [address] [address] PAIN MANAGEMENT CONSULTATION Name: SHARON VALDIVIA Room #: REG CLI Rosalio.#: [id number] Admission: 11/18/19 Attend Phys: Richrad Gibbs MD Discharge: Date of : 41 Report #: [id number] continues to improve. A 19 seconds' fluoroscopy time was used. The patient's pain score was 0 at the time of discharge. <ELECTRONICALLY SIGNED> By: Richard Gibbs MD 12/01/19 1516 [id number] [id number] Richard Gibbs MD /[facility]
== END | disposition home or self-care (01) ==
LOC: PAIN 06:45
PROVIDERS: ATTEND Anesthesiology Pain Medicine
DX: M54.16 Radiculopathy, lumbar region (principal); G89.29 Other chronic pain; I10 Essential (primary) hypertension; I25.10 Atherosclerotic heart disease of native coronary artery without angina pectoris; Z95.1 Presence of aortocoronary bypass graft; Z98.890 Other specified postprocedural states; Z79.899 Other long term (current) drug therapy

== ENCOUNTER → 2020-01-27 | Outpatient (CLI) | payer OTHER ==
[~2020-01-27] VITALS: Ht 160 cm; Wt 56.9 kg
[2020-01-27 08:57] VITALS: BP 138/72
--- NOTE | 2020-01-27 09:13 | NUR ---
Pain Clinic Assessment: 1. History of Osteoarthritis: RIGHT HIP SPINE RIGHT KNEE History of Rheumatoid Arthritis: Not Applicable 2. Height: 5 ft. 3 in. 160.0 cm. Weight: 125.4 lb. oz. 56.881 kg. Patient's BMI: 22.2 3. Vital Signs: BP: 138/72 Pulse: 60 Resp: 14 Temp: 02 Sat: 100 ECG Mon: 4. Pain Intensity: 5-6 AVG 5. Fall Risk: Dizziness: N Needs help standing or walking: N Fallen in the last 3 months: N Fall risk comments: 6. Patient on Blood Thinner: None 7. History of Hypertension: Y 8. Opioid Therapy greater than 6 weeks: N Opiate Contract Signed: 9. Risk Assessment Tool Provided: LOW RISK 0 10. Functional Assessment Tool: 11. Recreational Drug Use: Never Drug Type: Tobacco Use: Never Smoker Tobacco Type: Amount or Packs/day: How Many Years: Alcohol Use: No Frequency: Quant:
== END | disposition home or self-care (01) ==
LOC: PAIN 06:51
PROVIDERS: ATTEND Anesthesiology Pain Medicine
DX: M54.16 Radiculopathy, lumbar region (principal); G89.29 Other chronic pain; Z98.890 Other specified postprocedural states; Z79.899 Other long term (current) drug therapy; Z88.8 Allergy status to other drugs, medicaments and biological substances; Z79.82 Long term (current) use of aspirin

== ENCOUNTER → 2020-06-24 | Outpatient (CLI) | payer OTHER ==
[~2020-06-24] VITALS: Ht 160 cm; Wt 57.6 kg
[2020-06-24 14:26] VITALS: BP 174/71
--- NOTE | 2020-06-24 14:33 | NUR ---
Pain Clinic Assessment: 1. History of Osteoarthritis: RIGHT HIP SPINE RIGHT KNEE History of Rheumatoid Arthritis: Not Applicable 2. Height: 5 ft. 3 in. 160.0 cm. Weight: 127.0 lb. oz. 57.607 kg. Patient's BMI: 22.5 3. Vital Signs: BP: 174/71 Pulse: 65 Resp: 18 Temp: 02 Sat: 99 ECG Mon: 4. Pain Intensity: 3 5. Fall Risk: Dizziness: N Needs help standing or walking: N Fallen in the last 3 months: N Fall risk comments: 6. Patient on Blood Thinner: None 7. History of Hypertension: Y 8. Opioid Therapy greater than 6 weeks: N Opiate Contract Signed: 9. Risk Assessment Tool Provided: LOW RISK 0 10. Functional Assessment Tool: 11. Recreational Drug Use: Never Drug Type: Tobacco Use: Never Smoker Tobacco Type: Amount or Packs/day: How Many Years: Alcohol Use: No Frequency: Quant:
== END | disposition home or self-care (01) ==
LOC: PAIN 07:00
PROVIDERS: ATTEND Anesthesiology Pain Medicine
DX: M54.16 Radiculopathy, lumbar region (principal); G89.29 Other chronic pain; I10 Essential (primary) hypertension; M19.90 Unspecified osteoarthritis, unspecified site; D64.9 Anemia, unspecified; I25.10 Atherosclerotic heart disease of native coronary artery without angina pectoris; Z98.890 Other specified postprocedural states; Z79.899 Other long term (current) drug therapy; Z95.1 Presence of aortocoronary bypass graft; Z90.710 Acquired absence of both cervix and uterus; Z88.8 Allergy status to other drugs, medicaments and biological substances

== ENCOUNTER → 2020-10-07 | Outpatient (CLI) | payer OTHER ==
[~2020-10-07] VITALS: Ht 160 cm; Wt 56.7 kg
[2020-10-07 12:34] VITALS: BP 157/78
--- NOTE | 2020-10-07 12:38 | NUR ---
Pain Clinic Assessment: 1. History of Osteoarthritis: RIGHT HIP SPINE RIGHT KNEE History of Rheumatoid Arthritis: Not Applicable 2. Height: 5 ft. 3 in. 160.0 cm. Weight: 125.0 lb. oz. 56.700 kg. Patient's BMI: 22.1 3. Vital Signs: BP: 157/78 Pulse: Resp: 14 Temp: 02 Sat: ECG Mon: 4. Pain Intensity: 7 5. Fall Risk: Dizziness: N Needs help standing or walking: N Fallen in the last 3 months: N Fall risk comments: 6. Patient on Blood Thinner: None 7. History of Hypertension: Y 8. Opioid Therapy greater than 6 weeks: N Opiate Contract Signed: 9. Risk Assessment Tool Provided: LOW RISK 0 10. Functional Assessment Tool: 11. Recreational Drug Use: Never Drug Type: Tobacco Use: Never Smoker Tobacco Type: Amount or Packs/day: How Many Years: Alcohol Use: No Frequency: Quant:
== END | disposition home or self-care (01) ==
LOC: PAIN 11:19
PROVIDERS: ATTEND Anesthesiology Pain Medicine
DX: M54.16 Radiculopathy, lumbar region (principal); G89.29 Other chronic pain; M19.90 Unspecified osteoarthritis, unspecified site; Z98.890 Other specified postprocedural states; Z79.899 Other long term (current) drug therapy

== ENCOUNTER → 2020-11-14 | Outpatient (CLI) | payer OTHER | LOC: SJCVC 13:42 | PROVIDERS: ATTEND Internal Medicine Cardiovascular Disease | DX: R94.31 Abnormal electrocardiogram [ECG] [EKG] (principal); I49.1 Atrial premature depolarization; R09.89 Other specified symptoms and signs involving the circulatory and respiratory systems; I25.10 Atherosclerotic heart disease of native coronary artery without angina pectoris; I10 Essential (primary) hypertension; E78.00 Pure hypercholesterolemia, unspecified; I95.9 Hypotension, unspecified; R00.1 Bradycardia, unspecified; M54.30 Sciatica, unspecified side; M19.90 Unspecified osteoarthritis, unspecified site; E78.5 Hyperlipidemia, unspecified; Z88.5 Allergy status to narcotic agent; Z88.0 Allergy status to penicillin; Z79.899 Other long term (current) drug therapy; Z95.1 Presence of aortocoronary bypass graft ==

== ENCOUNTER → 2020-12-15 | Outpatient (CLI) | payer OTHER | LOC: SJCVCIMAG 07:46 | PROVIDERS: ATTEND Internal Medicine Cardiovascular Disease | DX: I65.23 Occlusion and stenosis of bilateral carotid arteries (principal); Z79.82 Long term (current) use of aspirin; Z79.899 Other long term (current) drug therapy ==

== ENCOUNTER → 2021-02-01 | Outpatient (CLI) | payer OTHER ==
[~2021-02-01] VITALS: Ht 160 cm; Wt 57.2 kg
[2021-02-01 10:13] VITALS: BP 139/70
--- NOTE | 2021-02-01 10:38 | NUR ---
Pain Clinic Assessment: 1. History of Osteoarthritis: RIGHT HIP SPINE RIGHT KNEE History of Rheumatoid Arthritis: Not Applicable 2. Height: 5 ft. 3 in. 160.0 cm. Weight: 126.2 lb. oz. 57.244 kg. Patient's BMI: 22.4 3. Vital Signs: BP: 139/70 Pulse: 60 Resp: 14 Temp: 02 Sat: 100 ECG Mon: 4. Pain Intensity: 7 5. Fall Risk: Dizziness: N Needs help standing or walking: N Fallen in the last 3 months: N Fall risk comments: 6. Patient on Blood Thinner: None 7. History of Hypertension: Y 8. Opioid Therapy greater than 6 weeks: N Opiate Contract Signed: 9. Risk Assessment Tool Provided: LOW RISK 0 10. Functional Assessment Tool: 11. Recreational Drug Use: Never Drug Type: Tobacco Use: Never Smoker Tobacco Type: Amount or Packs/day: How Many Years: Alcohol Use: No Frequency: Quant:
== END | disposition home or self-care (01) ==
LOC: PAIN 07:02
PROVIDERS: ATTEND Anesthesiology Pain Medicine
DX: M54.16 Radiculopathy, lumbar region (principal); G89.29 Other chronic pain; I10 Essential (primary) hypertension; I25.10 Atherosclerotic heart disease of native coronary artery without angina pectoris; M19.90 Unspecified osteoarthritis, unspecified site; Z98.890 Other specified postprocedural states; Z79.899 Other long term (current) drug therapy; Z95.1 Presence of aortocoronary bypass graft; Z88.8 Allergy status to other drugs, medicaments and biological substances

== ENCOUNTER → 2021-02-08 | Outpatient (CLI) | payer OTHER | LOC: SJCVC 10:33 | PROVIDERS: ATTEND Internal Medicine Cardiovascular Disease | DX: E78.00 Pure hypercholesterolemia, unspecified (principal); E78.5 Hyperlipidemia, unspecified; I10 Essential (primary) hypertension; I25.10 Atherosclerotic heart disease of native coronary artery without angina pectoris; Z88.8 Allergy status to other drugs, medicaments and biological substances; Z88.5 Allergy status to narcotic agent; Z95.1 Presence of aortocoronary bypass graft; Z79.82 Long term (current) use of aspirin; Z79.899 Other long term (current) drug therapy ==

== ENCOUNTER → 2021-04-21 | Outpatient (CLI) | payer OTHER ==
[~2021-04-21] VITALS: Ht 160 cm; Wt 55.5 kg
[2021-04-21 10:11] VITALS: BP 193/64
--- NOTE | 2021-04-21 10:23 | NUR ---
Pain Clinic Assessment: 1. History of Osteoarthritis: RIGHT HIP SPINE RIGHT KNEE History of Rheumatoid Arthritis: Not Applicable 2. Height: 5 ft. 3 in. 160.0 cm. Weight: 122.4 lb. oz. 55.520 kg. Patient's BMI: 21.7 3. Vital Signs: BP: 193/64 Pulse: 70 Resp: 16 Temp: 02 Sat: 100 ECG Mon: 4. Pain Intensity: 6 5. Fall Risk: Dizziness: N Needs help standing or walking: N Fallen in the last 3 months: N Fall risk comments: 6. Patient on Blood Thinner: None 7. History of Hypertension: Y 8. Opioid Therapy greater than 6 weeks: N Opiate Contract Signed: 9. Risk Assessment Tool Provided: LOW RISK 0 10. Functional Assessment Tool: 11. Recreational Drug Use: Never Drug Type: Tobacco Use: Never Smoker Tobacco Type: Amount or Packs/day: How Many Years: Alcohol Use: No Frequency: Quant:
== END | disposition home or self-care (01) ==
LOC: PAIN 09:15
PROVIDERS: ATTEND Anesthesiology Pain Medicine
DX: M54.16 Radiculopathy, lumbar region (principal); G89.29 Other chronic pain; I10 Essential (primary) hypertension; I25.10 Atherosclerotic heart disease of native coronary artery without angina pectoris; M19.90 Unspecified osteoarthritis, unspecified site; Z98.890 Other specified postprocedural states; Z79.899 Other long term (current) drug therapy; Z95.1 Presence of aortocoronary bypass graft

== ENCOUNTER → 2021-06-23 | Outpatient (CLI) | payer OTHER ==
[~2021-06-23] VITALS: Ht 160 cm; Wt 55.6 kg
[2021-06-23 10:34] VITALS: BP 160/87
--- NOTE | 2021-06-23 10:41 | NUR ---
Pain Clinic Assessment: 1. History of Osteoarthritis: RIGHT HIP SPINE RIGHT KNEE History of Rheumatoid Arthritis: Not Applicable 2. Height: 5 ft. 3 in. 160.0 cm. Weight: 122.6 lb. oz. 55.611 kg. Patient's BMI: 21.7 3. Vital Signs: BP: 160/87 Pulse: 61 Resp: 18 Temp: 02 Sat: 100 ECG Mon: 4. Pain Intensity: 6 5. Fall Risk: Dizziness: N Needs help standing or walking: N Fallen in the last 3 months: Y Fall risk comments: 6. Patient on Blood Thinner: None 7. History of Hypertension: Y 8. Opioid Therapy greater than 6 weeks: N Opiate Contract Signed: 9. Risk Assessment Tool Provided: LOW RISK 0 10. Functional Assessment Tool: 11. Recreational Drug Use: Never Drug Type: Tobacco Use: Never Smoker Tobacco Type: Amount or Packs/day: How Many Years: Alcohol Use: No Frequency: Quant:
== END | disposition home or self-care (01) ==
LOC: PAIN
PROVIDERS: ATTEND Anesthesiology Pain Medicine
DX: M54.16 Radiculopathy, lumbar region (principal); G89.29 Other chronic pain; M19.90 Unspecified osteoarthritis, unspecified site; Z98.890 Other specified postprocedural states; Z79.899 Other long term (current) drug therapy; Z88.8 Allergy status to other drugs, medicaments and biological substances

== ENCOUNTER → 2021-06-29 | Outpatient (CLI) | payer OTHER | LOC: SJCVCIMAG 07:26 | PROVIDERS: ATTEND Internal Medicine Cardiovascular Disease | DX: R09.89 Other specified symptoms and signs involving the circulatory and respiratory systems (principal); I25.10 Atherosclerotic heart disease of native coronary artery without angina pectoris; I10 Essential (primary) hypertension; E78.00 Pure hypercholesterolemia, unspecified; R06.00 Dyspnea, unspecified; R53.83 Other fatigue; M19.90 Unspecified osteoarthritis, unspecified site; E78.5 Hyperlipidemia, unspecified; M54.30 Sciatica, unspecified side; Z95.1 Presence of aortocoronary bypass graft; Z79.82 Long term (current) use of aspirin; Z79.899 Other long term (current) drug therapy; Z82.49 Family history of ischemic heart disease and other diseases of the circulatory system; Z88.5 Allergy status to narcotic agent; Z88.8 Allergy status to other drugs, medicaments and biological substances ==

== ENCOUNTER 2021-07-31 14:33 | Inpatient (IN) | payer OTHER ==
[~2021-07-31] VITALS: Ht 157.5 cm; Wt 73.1 kg
[2021-07-31] VITALS (7 sets, daily range): BP systolic 112–173; BP diastolic 63–115
[2021-07-31 14:55] LABS: ABSOLUTE NEUTROPHILS 6.4 thou/uL (1.4-8.2); BASOPHILS 0.7 % (0.0-2.0); EOSINOPHILS 3.1 % (0.0-3.0); HEMATOCRIT 37.2 % (37.0-47.0); LYMPHOCYTES 16.6 % (24.0-44.0); MCH 29.2 pg (26.0-34.0); MCHC 32.4 g/dL (28.0-37.0); MCV 90.1 fL (80.0-100.0); MONOCYTES 11.8 % (1.0-8.0); PLATELET COUNT 370 thou/uL (150-400); POLYS 67.8 % (36.0-66.0); RBC 4.13 mil/uL (4.20-5.00); RDW 15.2 % (10.5-14.5); WBC 9.5 thou/uL (4.0-11.0)
[2021-07-31 15:03] LABS: CALCIUM 9.3 mg/dL (8.5-10.1); CREATININE 1.1 mg/dL (0.6-1.0); POTASSIUM 3.1 mmol/L (3.5-5.1)
[2021-07-31 15:12] LABS: INR 1.03; PROTIME 11.2 Seconds (10.5-12.1)
[2021-07-31 15:13] LABS: ALBUMIN 3.4 g/dL (3.4-5.0); TOTAL BILIRUBIN 0.5 mg/dL (0.2-1.0); TOTAL PROTEIN 7.1 g/dL (6.4-8.2)
--- NOTE | 2021-07-31 16:04 | EKG ---
[place] [address] [place] [address] ELECTROCARDIOGRAM REPORT Name: BRIDGET VALDIVIADEB ZHUE [facility]: [facility] [id number] Admission: 07/31/21 Attend Phys: Discharge: Date of : 41 Report #: [id number] [facility] ED Test Date: 2021-07-31 Test Time: 14:39:47 Pat Name: SHARON VALDIVIA Department: Room: Gender: F Angiographer: ANTONIA : 1945 Requested By: Milo Keenan Order Number: [id number] MD: Storm Baptiste Measurements Intervals [place] Rate: 179 P: TN: QRS: 40 QRSD: 74 T: 268 QT: 234 QTc: 404 Interpretive Statements Atrial fibrillation with rapid V-rate Probable LVH with secondary repol abnrm Anterior Q waves, possibly due to LVH ST depression, probably rate related Baseline wander in lead(s) V1 Compared to ECG 07/21/2015 00:25:18 Q waves now present Sinus rhythm no longer present Electronically Signed On 07-31-2021 16:04:15 [employer] by Storm Baptiste [email or web address] <ELECTRONICALLY SIGNED> By: Storm Baptiste MD, FACC 07/31/21 1604 1439 1439 Storm Baptiste MD, FAC /EPI
[2021-07-31] MEDS ORDERED: ROSUVASTATIN CA40 MG PO (17:57)
[2021-07-31] MEDS ORDERED: PRALUENT P75 MG/1 ML (17:58)
[2021-08-01 03:12] LABS: ABSOLUTE NEUTROPHILS 5.1 thou/uL (1.4-8.2); EOSINOPHILS 3.1 % (0.0-3.0); HEMATOCRIT 31.1 % (37.0-47.0); HEMOGLOBIN 10.5 gm/dL (12.0-15.0); MCH 30.4 pg (26.0-34.0); MCHC 33.9 g/dL (28.0-37.0); MCV 89.9 fL (80.0-100.0); MONOCYTES 11.7 % (1.0-8.0); PLATELET COUNT 316 thou/uL (150-400); POLYS 67.2 % (36.0-66.0); RBC 3.46 mil/uL (4.20-5.00); WBC 7.6 thou/uL (4.0-11.0)
[2021-08-01 03:27] LABS: CALCIUM 8.1 mg/dL (8.5-10.1); CREATININE 1.1 mg/dL (0.6-1.0); MAGNESIUM 1.8 mg/dL (1.8-2.4); POTASSIUM 3.5 mmol/L (3.5-5.1)
[2021-08-01 03:37] VITALS: BP 174/70
[2021-08-01 04:13] VITALS: BP 150/81
[2021-08-01 07:00] VITALS: BP 145/59
[2021-08-01 11:00] VITALS: BP 148/70
--- NOTE | 2021-08-01 11:48 | CATHLAB ---
[facility] [place] [address] INVASIVE PROCEDURE REPORT Name: SHARON VALDIVIA Room #: 212-P ADM IN M.R.#: [id number] Admission: 07/31/21 Attend Phys: Ancelmo Matias MD Discharge: Date of : 41 Report #: [id number] THIS REPORT FOR: cc: Johanna Fneg Kathleen M. DO Park, Jin S. MD ~ APPROVED REPORT Study performed: 08/01/2021 08:00:17 Patient Details Patient Status: In-Patient Room #: The patient is a 76 year-old female Event Personnel Cesar Herrmann Shell Assembler, Juan Graham RN RN, Emilia Gibbs Monitor, Iván Salinas SENIOR INTERACTIVE PRODUCER Scrub Procedures Performed Art Access - R femoral artery* Left Heart Cath w/or w/o Coronaries 2108719 [facility] Hemostasis with Manual pressure 79809 Initial Mod Sed Same Phys/QHP Gr5y 732194 68988 Mod Sed Same Phys/QHP Ea 343425 Indication Atrial fibrillation, Dyspnea, Unstable angina , Chest pain Risk Factors Hypercholesterolemia, Coronary Artery Disease Previous Procedures/Diagnoses Previous CABGPrevious PCI Procedure Narrative The Right Groin^ was infiltrated with 1% Lidocaine subcutaneous anesthesia. A PINNACLE 4FR Sheath #[id number] sheath was inserted into the RFA 4F^. Coronary angiography was performed using coronary diagnostic catheters. The right coronary system was accessed and visualized with a JR4 catheter. The left coronary system was accessed and visualized with a JL4 catheter. Hemostasis was obtained with manual pressure following sheath removal without any complications. Intraoperative Conscious Sedation [facility] [address] [place] [address] INVASIVE PROCEDURE REPORT Name: SHARON VALDIVIA Room #: 212-P [facility] IN M.R.#: [id number] Admission: 07/31/21 Attend Phys: Ancelmo Matias MD Discharge: Date of : 41 Report #: [id number] Sedation start time: 828 Case end Time: 904 Fentanyl 50 mcg Versed 1 mg Fluoro Time: 4.00 minutes Dose: DAP 2126.60 cGycm2 300 mGy Contrast Type and Amount: Omnipaque 35 ml Coronary Angiography The patient's coronary anatomy is right dominant. Diagnostic Cath LAD There is a total occlusion of the ostial LAD. There is a patent TIRADO graft with an end-to-side anastomosis to the middle LAD. After the anastomosis, there is both retrograde and anterograde flow in the belkofski LAD. The distal LAD wraps around the apex and terminates in the inferior wall. Circumflex The left circumflex artery has mild disease in the midsegment. OM1 This is a moderate-sized caliber vessel with a borderline stenosis in the proximal segment. OM2 There is a moderate-sized caliber vessel, patent with no flow-limiting lesions. Right Coronary There is a patent stent in the mid RCA, with mild diffuse restenosis of 30%. R PDA There is a moderate-sized caliber vessel, patent with no flow-limiting lesions. RPLV There is a moderate-sized caliber vessel, patent with no flow-limiting lesions. Left Ventriculography Left Ventriculography was not performed. An LVEDP was measured and there is no gradient across the outflow tract. Hemodynamics The aortic pressure is 173/91 mmHg with a mean of 117 mmHg. The left ventricular pressure is 176/7 mmHg with a mean of mmHg. The left ventricular end diastolic pressure is 17 mmHg. Conclusion 1. There is a total occlusion of the ostial LAD. There is a patent TIRADO graft to the LAD. 2. There is a patent stent in the mid RCA segment with mild restenosis. 3. There is a borderline stenosis in the proximal segment of the first obtuse marginal artery, recommend medical therapy. [address] [address] INVASIVE PROCEDURE REPORT Name: SHARON VALDIVIA Room #: 212-P [facility] IN .R.#: [id number] Admission: 07/31/21 Attend Phys: Ancelmo Matias MD Discharge: Date of : 41 Report #: [id number] 4. Recommend guideline directed medical therapy and risk factor management. <ELECTRONICALLY SIGNED> By: Cesar Herrmann MD 08/01/21 1148 1148 1148 Cesar Herrmann MD /DUNCAN
[2021-08-01 17:00] VITALS: BP 144/59
[2021-08-01 20:00] VITALS: BP 158/82
[2021-08-02 04:00] VITALS: BP 139/74
[2021-08-02 04:26] LABS: HEMATOCRIT 31.8 % (37.0-47.0); HEMOGLOBIN 10.7 gm/dL (12.0-15.0); MCHC 33.6 g/dL (28.0-37.0); MCV 89.2 fL (80.0-100.0); RBC 3.57 mil/uL (4.20-5.00); RDW 15.1 % (10.5-14.5)
[2021-08-02 04:58] LABS: CALCIUM 8.2 mg/dL (8.5-10.1); CREATININE 1.1 mg/dL (0.6-1.0); POTASSIUM 3.6 mmol/L (3.5-5.1)
[2021-08-02 07:26] VITALS: BP 135/52
[2021-08-02] MEDS ORDERED: ELIQUIS5 MG PO (08:46)
[2021-08-02] MEDS ORDERED: MULTAQ 400 MG400 MG PO (08:46)
--- NOTE | 2021-08-02 10:23 | TEE ---
[facility] [place] [address] TRANSESOPHAGEAL ECHOCARDIOGRAM Name: SHARON VALDIVIA Room #: 217-P ADM IN M.R.#: [id number] Admission: 07/31/21 Attend Phys: Ancelmo Matias MD Discharge: Date of : 41 Report #: [id number] THIS REPORT FOR: cc: Johanna Feng Kathleen M. DO Santiago, Patrick MD FACC ~ APPROVED REPORT Study performed: 08/02/2021 07:52:59 EXAM: Transesophageal Echocardiogram Patient Location: In-Patient Room #: 217 Status: routine BSA: 1.59 HR: 90 bpm BP: 135/52 mmHg Rhythm: Atrial Fibrillation Other Information Study Quality: Adequate Indications Atrial Fibrillation Cardioversion. Hx: CABG, PCI. Procedure After obtaining informed consent, patient underwent transesophageal echo in the [employer]. Type of Sedation : Conscious Sedation Sedation was administered by GOLDIE Hernandez. Sedation start time: 0759 Case end Time: 0506 Sedation was achieved intravenously with: Versed (3) Fentanyl (50) Transesophageal probe was inserted and advanced into esophagus without difficulty by Storm Baptiste MD [facility]. Echo enhancement indication: R/O Septal defect. Echo enhancement agent administered: Agitated Saline The YOHANNES was performed with complications. Synchronized Cardioversion attempted: Successful Synchronized Cardioversion acheived with 150 Joules after 1 attempt(s). Rhythm following Synchronized Cardioversion: Normal Sinus Rhythm [facility] [address] [place] [address] TRANSESOPHAGEAL ECHOCARDIOGRAM Name: SHARON VALDIVIA Room #: 217-P ADM IN M.R.#: [id number] Admission: 07/31/21 Attend Phys: Ancelmo Matias MD Discharge: Date of : 41 Report #: [id number] Throughout the procedure, the blood pressure, pulse oximetry, cardiac rhythm, and rate were monitored. The patient tolerated the procedure without adverse effects. Recovery from conscious sedation was uneventful and vital signs were stable. Left Ventricle The left ventricle is normal size. There is normal left ventricular wall thickness. Left ventricular systolic function is normal. LVEF is 55%. Right Ventricle The right ventricle is normal size. The right ventricular systolic function is normal. Atria The left atrium size is normal. No thrombus is visualized in the left atrium or appendage. No shunting noted with bubble study. The right atrium size is normal. Aortic Valve The aortic valve is normal in structure mildly calcified. Mild aortic regurgitation. There is no aortic valvular stenosis. Mitral Valve The mitral valve is normal in structure. Mild mitral regurgitation. Tricuspid Valve The tricuspid valve is normal in structure. Mild to moderate tricuspid regurgitation. Pulmonic Valve The pulmonary valve is normal in structure. Great Vessels The aortic root is normal in size. The ascending aorta is normal in size. Pericardium There is no pericardial effusion. Possible pleural effsuion noted. <Conclusion> Consent was obtained Atrial fibrillation at baseline [facility] [address] [place] [address] TRANSESOPHAGEAL ECHOCARDIOGRAM Name: SHARON VALDIVIA Room #: 217-P ADM IN M.R.#: [id number] Admission: 07/31/21 Attend Phys: Ancelmo Matias MD Discharge: Date of : 41 Report #: [id number] Timeout performed After proper sedation, esophageal probe was advanced without difficulty Left atrial appendage, small, no obvious mass or clot detected Normal atrial size Normal left ventricle size/wall thickness Ejection fraction 55% Normal right ventricle size/function Normal aortic/mitral valve structure Mild aortic/mitral valve insufficiency Mild to moderate tricuspid valve insufficiency No pericardial effusion Normal aortic root size Patient cardioverted to sinus rhythm after 150-200 J/biphasic mode Patient tolerated the procedure well Twelve-lead ECG pending <ELECTRONICALLY SIGNED> By: Storm Baptiste MD, FACC 08/02/211022 22 22 Storm Baptiste MD, FACC /INF
--- NOTE | 2021-08-02 11:32 | EKG ---
[address] [place] [address] ELECTROCARDIOGRAM REPORT Name: SHARON VALDIVIA Room #: 217-P ADM IN M.R.#: [id number] Admission: 07/31/21 Attend Phys: Ancelmo Matias MD Discharge: Date of : 41 Report #: [id number] Test Date: 2021-08-02 Test Time: 08:45:48 Pat Name: SHARON VALDIVIA Department: Room: 217 P Gender: F Cost And Risk Analysis Manager: UNKNOWN : 1945 Requested By: Storm Baptiste Order Number: [id number] MD: Storm Baptiste Measurements Intervals [place] Rate: 83 P: 200 MD: 189 QRS: 56 QRSD: 79 T: 47 QT: 380 QTc: 447 Interpretive Statements Sinus rhythm Anterior infarct, old Compared to ECG 07/31/2021 14:39:47 Ectopic atrial rhythm now present Atrial fibrillation no longer present Left ventricular hypertrophy no longer present Electronically Signed On 08-02-2021 11:32:13 BAG MACHINE OPERATOR by Storm Baptiste [email or web address] <ELECTRONICALLY SIGNED> By: Storm Baptiste MD, [facility] 08/02/21 1132 0845 0845 Storm Baptiste MD, FAC /EPI
[2021-08-02 11:41] VITALS: BP 165/66
[2021-08-02 12:48] VITALS: BP 165/66
[2021-08-03] MEDS ORDERED: AMIODARONE HCL400 MG PO (13:18)
[2021-08-03] MEDS ORDERED: PACERONE200 MG PO (13:56)
== END 2021-08-02 14:41 | disposition home or self-care (01) | DRG 287 ==
LOC: ER 14:33 → 2N 16:14 → EROBS 16:14 → 2N 17:13
PROVIDERS: Emergency Medicine; Internal Medicine Cardiovascular Disease; Nurse Practitioner; ADMIT Internal Medicine; ATTEND Internal Medicine
PROC: 4A023N7 Measurement of Cardiac Sampling and Pressure, Left Heart, Percutaneous Approach (ICD-10-PCS; principal; 2021-08-01)
PROC: B24BZZ4 Ultrasonography of Heart with Aorta, Transesophageal (ICD-10-PCS; principal; 2021-08-01)
PROC: B2111ZZ Fluoroscopy of Multiple Coronary Arteries using Low Osmolar Contrast (ICD-10-PCS; 2021-08-02)
DX: I25.10 Atherosclerotic heart disease of native coronary artery without angina pectoris (principal); N17.9 Acute kidney failure, unspecified; E87.1 Hypo-osmolality and hyponatremia; I16.0 Hypertensive urgency; Z20.822 Contact with and (suspected) exposure to COVID-19; Z95.1 Presence of aortocoronary bypass graft; E78.00 Pure hypercholesterolemia, unspecified; E87.6 Hypokalemia; Z88.8 Allergy status to other drugs, medicaments and biological substances; E78.5 Hyperlipidemia, unspecified; I73.9 Peripheral vascular disease, unspecified; I48.91 Unspecified atrial fibrillation; Z79.01 Long term (current) use of anticoagulants
CPT/HCPCS: 10081